=== PATIENT | female | born 2005 | race Caucasian/White ===

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

== ENCOUNTER 2023-10-10 12:30 | Emergency (ER) | payer OTHER, SELFPAY ==
--- NOTE | ~2023-10-10 | XR_ITS ---
EXAMINATION: RADIOGRAPH RIGHT ANKLE AND RIGHT FOOT CLINICAL INFORMATION: Injury. COMPARISON: None available. TECHNIQUE: 2 views of the right ankle and 3 views of the right foot. FINDINGS: No fracture. Alignment is anatomic. No erosions. Joint spaces are maintained. Soft tissues are normal. XR/XR foot RT min 3V IMPRESSION: No significant radiographic abnormality in the right ankle nor right foot. Electronically signed by: Marci Chong MD 10/10/2023 01:23 PM EDT
--- NOTE | ~2023-10-10 | XR_ITS ---
EXAMINATION: RADIOGRAPH RIGHT ANKLE AND RIGHT FOOT CLINICAL INFORMATION: Injury. COMPARISON: None available. TECHNIQUE: 2 views of the right ankle and 3 views of the right foot. FINDINGS: No fracture. Alignment is anatomic. No erosions. Joint spaces are maintained. Soft tissues are normal. XR/XR ankle RT min 3V IMPRESSION: No significant radiographic abnormality in the right ankle nor right foot. Electronically signed by: Marci Chong MD 10/10/2023 01:23 PM EDT
[2023-10-10 12:39] VITALS: BP 108/69; PULSE 81; RESP 18; TEMP 36.8; O2SAT 99; BMI 21.9
--- NOTE | 2023-10-10 12:42 | ED.LOWEXIN ---
HPI - Extremity Injury (Lower) General Chief Complaint: Extremity Injury, Lower Stated Complaint: R ankle injury Time Seen by Provider: 10/10/23 13:20 Source: patient Mode of arrival: other (crutches) Limitations: no limitations History of Present Illness ED Provider: Priscilla Castrejon PA-C HPI Narrative: 18-year-old female presents to the ER for evaluation of right ankle pain, redness and swelling that started last night after she injured it while hiking. She states she was climbing up a deep rock wall when a large rock fell down the wall, hitting her in the right lateral ankle. She reports significant pain with ambulation. She iced it last night. Today she had to use crutches because of the pain. She noticed redness to the lateral ankle. She sustained some abrasions from pickers, her TDAP is UTD. No other injuries. No pain in the foot. complaint: ankle injury Onset (ago): day(s) (1) Injury: Right: ankle Type of Injury: blunt Place: street/outdoors Severity: severe Relieving factors: immobilization and rest Exacerbating factors: weight bearing, movement and palpation Context: walking Associated symptoms: swelling and able to partially bear weight Other symptoms: none Treatments prior to arrival: cold therapy Related Data Previous Rx's ?Medication ?Instructions ?Recorded amoxicillin 875 mg-potassium 1 tab PO BID #20 tabs 06/05/22 clavulanate 125 mg tablet ibuprofen 600 mg tablet 600 mg PO Q6H PRN fever or pain 06/05/22 #30 tabs amoxicillin 500 mg-potassium 1 tab PO BID #14 tabs 10/10/23 clavulanate 125 mg tablet (Augmentin) ibuprofen 600 mg tablet 600 mg PO Q8H PRN pain #20 tabs 10/10/23 Allergies Allergy/AdvReac Type Severity Reaction Status Date / Time No Known Allergies Allergy Verified 10/10/23 12:42 Review of Systems Review of Systems: Yes all other systems are reviewed and are negative [facility] Social History Social History Alcohol intake: never Substance Use Type: Marijuana Physical Exam Vital Signs: Vital Signs: Last Vital Signs Temp 98.2 F 10/10/23 12:39 Pulse 81 10/10/23 12:39 Resp 18 10/10/23 12:39 BP 108/69 10/10/23 12:39 Pulse Ox 99 10/10/23 12:39 O2 Del Method Room Air 10/10/23 12:39 BMI result Body Mass Index 21.9 Appearance: Alert. Oriented X3. No acute distress. HEENT: normal inspection CVS: Normal heart rate and rhythm. Pulses normal. Respiratory: No respiratory distress. Skin: Skin warm and dry. Normal skin color. Normal skin turgor. No rashes. Extremities: Right ankle and lower leg with multiple superficial abrasions and scratches, no active bleeding. There is erythema overlying the right lateral malleolus, no warmth. There is significant tenderness and mild swelling of the right lateral malleolus as well. Tenderness extends distally to the proximal foot. Pain with plantar flexion and dorsiflexion. Neuro: Oriented X 3. No motor deficit. No sensory deficit. Course Course Course Narrative: This is a Rapid Medical Examination (RME) performed by Tita Butler PA-C in triage. Full HPI, ROS, assessment and treatment plan per primary provider in the Main ED. 18 yo female here for eval of right ankle pain/ swelling that occured while hiking last night when a rock fell and hit her right ankle. unable to bear weight on right foot. tetanus UTD. took motrin at 0930 this morning. PE: patient ambulating w/ crutches. noted swelling/ erythema to right lateral ankle. ttp. multiple scratches to right ankle/ vo. 2+PT/DP pulses. Plan: xrs ordered Medical Decision Making Medical Decision Making MDM Narrative: 18-year-old female presents to the ER for evaluation of right ankle pain, redness, swelling after a large rock fell down a wall and hit her in the right ankle while she was climbing it. Pain increased today were she is using crutches and is nonambulatory. On examination she has erythema to the right lateral ankle with some mild swelling. No deformity. She has significant tenderness and pain with range of motion. X-ray was done and reviewed. No evidence of acute fracture. Given the overlying erythema and localized scratches, will prescribe empiric antibiotics for possible early cellulitis. Patient was given return precautions, Milind wrap and Aircast for ankle injury. She is to continue crutches, rest, ice, elevation and NSAIDs for pain. Stable for discharge home. Differential Diagnosis Differential Diagnoses: The differential diagnosis associated with the presentation includes Ankle sprain, ankle fracture, cellulitis Independent Interpretation I performed an independent interpretation of an: Plain X-Ray Interpretation: No appreciated fracture or malalignment of the foot or ankle, agrees radiology read Radiology Impression Discussion of test interpretation with radiology: I have reviewed the radiologist's reading. Radiologist Impression: EXAMINATION: RADIOGRAPH RIGHT ANKLE AND RIGHT FOOT CLINICAL INFORMATION: Injury. COMPARISON: None available. TECHNIQUE: 2 views of the right ankle and 3 views of the right foot. FINDINGS: No fracture. Alignment is anatomic. No erosions. Joint spaces are maintained. Soft tissues are normal. XR/XR foot RT min 3V IMPRESSION: No significant radiographic abnormality in the right ankle nor right foot. Prescription Management I considered prescription management with: Pain Medication and Antibiotic Discharge Plan Discharge Clinical Impression: Ankle sprain and strain Patient Disposition: Home, Self-Care Instructions: Ankle Sprain (DC) Additional Instructions: Your x-ray today was normal. Rest your ankle and elevate your foot when possible. Recommend MILIND wrap for support and compression. Use ice several times per day for the next 48 hours. You may bear weight as tolerated. If pain is too severe, use crutches until better. Take the prescribed antibiotic for cellulitis. If the redness spreads or worsens after 48 hours on antibiotics, all your doctor or come back to the ER for further evaluation. Take the prescribed ibuprofen every [id number] hours. Take this with food. Also recommend adding Tylenol 1000 mg every 6-8 hours as needed for pain. Follow up with your doctor as needed. Prescriptions: New amoxicillin-pot clavulanate [Augmentin] 500-125 mg tablet 1 tab PO BID Qty: 14 0RF ibuprofen 600 mg tablet 600 mg PO Q8H PRN (Reason: pain) Qty: 20 0RF No Action ibuprofen 600 mg tablet 600 mg PO Q6H PRN (Reason: fever or pain) Qty: 30 0RF amoxicillin-pot clavulanate 875-125 mg tablet 1 tab PO BID Qty: 20 0RF Referrals: Enma Valle, PROTECTION AGENT [Primary Care Provider] - Print Language: Belarusian
[2023-10-10 13:58] VITALS: BP 108/69; PULSE 81; RESP 18; TEMP 36.8; O2SAT 99
== END 2023-10-10 13:58 | disposition home or self-care (01) ==
PROVIDERS: Emergency Provider Emergency Medicine; PCP Nurse Practitioner Family
DX: S93.401A Sprain of unspecified ligament of right ankle, initial encounter (principal); S96.911A Strain of unspecified muscle and tendon at ankle and foot level, right foot, initial encounter; W20.8XXA Other cause of strike by thrown, projected or falling object, initial encounter; Y93.01 Activity, walking, marching and hiking; Y92.828 Other wilderness area as the place of occurrence of the external cause; Y99.9 Unspecified external cause status
CPT/HCPCS: 73610; 73630; 99283

== ENCOUNTER 2024-10-28 13:52 | Emergency (ER) | payer OTHER, SELFPAY ==
--- NOTE | ~2024-10-28 | CT_ITS ---
CLINICAL HISTORY: fall with head strke CT cervical spine without contrast. COMPARISON: None provided. FINDINGS: Straightening of the normal cervical lordosis, likely positional. Vertebral body heights are maintained. 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 No significant degenerative changes. Skull base and intracranial structures appear normal. The visualized paravertebral soft tissues appear unremarkable. IMPRESSION: 1. No evidence of acute injury to the cervical spine. This document has been electronically signed by: Paul Romero MD on 10/28/2024 17:29:20
--- NOTE | ~2024-10-28 | CT_ITS ---
EXAMINATION: CT HEAD WITHOUT CONTRAST CLINICAL INFORMATION: Fall with head trauma COMPARISON: None available. TECHNIQUE: Contiguous axial imaging was performed from the skull base to vertex without intravenous administration of contrast. This CT examination was performed using dose optimization techniques as appropriate, variously including the following: *Automated exposure control *Adjustment of mA and/or kV according to patient size (this includes techniques or standardized protocols for targeted exams where dose is matched to indication/reason for exam; i.e. extremities or head) *Use of iterative reconstruction technique DLP: 587 mGY*cm FINDINGS: There is no acute ischemic change. There is no intracranial hemorrhage. There is no mass-effect or midline shift. Basal cisterns and ventricles are within normal limits for age/cerebral volume. Orbits are symmetrical and unremarkable. Paranasal sinuses and mastoid air cells are pneumatized. There are no bony abnormalities. CT/CT head/brain wo IV con IMPRESSION: No acute intracranial abnormality. Electronically signed by: Jimbo Knight MD 10/28/2024 05:26 PM EDT
[2024-10-28 13:56] VITALS: BP 114/70; PULSE 88; RESP 18; TEMP 36.9; O2SAT 95; BMI 23.8
--- NOTE | 2024-10-28 13:57 | ECG_ITS ---
Test Reason : DIZINESS Blood Pressure : */* mmHG Vent. Rate : 77 BPM Atrial Rate : 77 BPM P-R Int : 156 ms QRS Dur : 78 ms QT Int : 366 ms P-R-T Axes : 49 30 5 degrees QTcB Int : 414 ms Normal sinus rhythm Septal infarct , age undetermined Abnormal ECG No previous ECGs available Referred By: Lidia Butler Electronically Signed By: ANNA MARIE MITCHELL MD
--- NOTE | 2024-10-28 13:57 | ED.GENADULT ---
[facility] - General Adult General Chief complaint: Head Injury Stated complaint: Head inj, ref by [facility] Time Seen by Provider: 10/28/24 16:57 Source: patient Mode of arrival: ambulatory History of Present Illness ED Provider: Caroline [facility] narrative: 19-year-old female who reports that she was in the bathroom this morning, when she felt lightheaded and fell backwards striking the back of her head on the counter, she denies LOC but was concerned about possible concussion and went to urgent care who referred her into the emergency room. She states that she has some pain to the back of her head but otherwise denies any dizziness, she reports that she did vomit a couple of times today but otherwise has been feeling well. Related Data Previous Rx's ?Medication ?Instructions ?Recorded amoxicillin 875 mg-potassium 1 tab PO BID #20 tabs 06/05/22 clavulanate 125 mg tablet ibuprofen 600 mg tablet 600 mg PO Q6H PRN fever or pain 06/05/22 #30 tabs amoxicillin 500 mg-potassium 1 tab PO BID #14 tabs 10/10/23 clavulanate 125 mg tablet (Augmentin) ibuprofen 600 mg tablet 600 mg PO Q8H PRN pain #20 tabs 10/10/23 Allergies Allergy/AdvReac Type Severity Reaction Status Date / Time No Known Allergies Allergy Verified 10/28/24 13:58 Review of Systems Review of Systems: Pertinent positives and negatives as stated in [facility] Past Medical History Attestation statement: The following information was validated with the patient. Source: nursing notes reviewed Social History Social History Alcohol intake: never Substance Use Type: Marijuana Advance Directives: No Advance Directives Information Provided: Yes Do you have a plan to hurt others: No Plan Physical Exam ED Exam Exam: VITAL SIGNS: Reviewed. GENERAL: Well developed, well nourished, in no acute distress. HEAD: Normocephalic/atraumatic EYES: PERRLA, EOMI EARS: Ext canals without abnormality NOSE: Nares patent bilateral OROPHARYNX: no oral lesions noted, posterior pharynx clear NECK: Supple, no adenopathy, no midline cervical spine tenderness to palpation or step-offs noted. LUNGS: Normal breath sounds. No adventitious sounds or accessory muscle use. CARDIOVASCULAR: Regular rate and rhythm without noted murmurs ABDOMEN: Soft, non-tender, non-distended with bowel sounds. MUSCULOSKELETAL: No tenderness, deformities, or effusions noted on gross inspection. EXTREMITIES: No cyanosis, clubbing or edema. SKIN: Inspection of the skin reveals no rashes NEUROLOGIC: Alert and oriented x 4. Strength and sensation to light touch were grossly intact x 4. Vital Signs: Vital Signs - 24 hr 10/28/24 13:56 10/28/24 17:02 Temperature 98.4 F 98.3 F Pulse Rate 88 76 Respiratory Rate 18 18 Blood Pressure 114/70 122/60 Pulse Oximetry 95 100 Oxygen Delivery Method Room Air Room Air BMI result Body Mass Index 23.8 Course Course Course Narrative: This is a Rapid Medical Examination (RME) performed by Tita Butler PA-C in triage. Full HPI, ROS, assessment and treatment plan per primary provider in the Main ED. Hx: 19 yo F here from for eval s/p head injury this morning. reports feeling dizzy w/ tunnel vision while in her bathroom causing her to fall to the ground w/ head strike on the edge of her kitchen sink. denies complete LOC. +1 episode of vomiting. reports headache at present. seen at , sent here for imaging. states this happens often. Plan: labs, ekg, imaging Medical Decision Making Medical Decision Making MDM Narrative: 19-year-old female with history and clinical presentation, DD DX: Vasovagal near-syncope with head strike. Will evaluate for underlying infection/anemia/electrolyte derangements. 1752: My interpretation of the EKG-sinus rhythm, HR-77, no STEMI, MD/QRS/QTC/QTC is otherwise within normal limits. 1753: Reviewed and interpreted all investigations and there is no leukocytosis, anemia, or thrombocytopenia. There is no demonstrate MUSA/electrolyte or liver enzyme derangements. High sensitivity troponin is undetectable and not associated with ischemic changes. Beta hCG is undetectable. My interpretation is in agreement with radiology's impression of the noncontrast head CT and cervical spine in that there is no evidence of intracranial hemorrhage or mass effect and no evidence of C-spine fracture or subluxation. Patient is otherwise well-appearing and nontoxic, she is hemodynamically stable without focal neurologic deficits. She will be discharged with instructions to follow-up with your primary care doctor and given precautions regarding screen time/sound and noise for the next 24-48 hours. Patient does not meet inpatient level of care at this time. Differential Diagnosis Differential Diagnoses: The differential diagnosis associated with the presentation includes See above Admission/Observation Consideration of admission/observation: Escalation of care including admission/observation considered See above Lab Data MDM Lab Attestation statement: I reviewed the patient's lab results. See above 10/28/24 14:16 10/28/24 14:16 Labs: Lab Results 10/28/24 Range/Units 14:16 WBC 6.2 (4.8-10.8) X10*3/uL RBC 4.31 (4.20-5.50) X10*6/uL Hgb 13.5 (12.0-16.0) g/dl Hct 36.3 L (37.0-47.0) % MCV 84.2 (80.0-98.0) fL MCH 31.3 (27.0-33.0) pg MCHC 37.2 H (31.0-35.0) g/dl RDW 12.1 (11.0-16.0) % Plt Count 187 (160-400) X10*3/uL MPV 10.0 (9.4-12.3) fL Immature Gran % (Auto) 0.2 (0.0-0.4) % Neut % (Auto) 71.7 (45-73) % Lymph % (Auto) 21.5 (20-40) % [place] % (Auto) 5.8 (2-11) % Eos % (Auto) 0.5 (0-4) % Baso % (Auto) 0.3 (0-2) % Lymph # (Auto) 1.3 (1.2-4.9) X10*3/uL [place] # (Auto) 0.4 (0.1-1.2) X10*3/uL Eos # (Auto) 0.0 (0.0-0.4) X10*3/uL Baso # (Auto) 0.0 (0.0-0.2) X10*3/uL Abs Immat Gran (auto) 0.01 (0.00-0.03) X10*3/uL Absolute Neuts (auto) 4.5 (2.0-8.3) x10*3/uL Absolute Nucleated RBC 0.000 (0.0-0.012) X10*3/uL Nucleated RBC % (auto) 0.0 (0.0-0.2) /100WBC Sodium 141 (135-145) mmol/L Potassium 3.8 (3.3-5.1) mmol/L Chloride 109 H (96-108) mmol/L Carbon Dioxide 24 (22-29) mmol/L Anion Gap 12 (12-20) BUN 13 (9-16) mg/dL Creatinine 0.81 (0.5-1.4) mg/dL Estim Creat Clear Calc 86.9 Estimated GFR > 60 Random Glucose 87 (60-115) mg/dL Calcium 9.2 (8.4-10.2) mg/dL Magnesium 2.0 (1.6-2.6) mg/dL Total Bilirubin 0.4 (0.0-1.0) mg/dL AST 19 (5-31) U/L ALT 20 (0-31) U/L Alkaline Phosphatase 33 L (39-117) U/L Troponin I High Sens < 2.7 (<3.5-17.0) ng/L Total Protein 6.8 (6.5-8.0) g/dL Albumin 4.2 (3.5-5.0) g/dL Beta HCG, Quant < 2 mIU/mL Independent Interpretation I performed an independent interpretation of an: EKG and CT Scan Interpretation: See above Radiology Impression Discussion of test interpretation with radiology: I have reviewed the radiologist's reading. Radiologist Impression: See above Discharge Plan Discharge Clinical Impression: Closed head injury, Near syncope Patient Disposition: Home, Self-Care Instructions: Post Concussion Syndrome (ED) Additional Instructions: Highly recommend Tylenol and ibuprofen for any headaches, avoid fallen/TV as well as stick to low light and sound environments. Follow-up with your primary care doctor and do not hesitate to return to the emergency room for any acute worsening of your symptoms. Prescriptions: No Action ibuprofen 600 mg tablet 600 mg PO Q6H PRN (Reason: fever or pain) Qty: 30 0RF amoxicillin-pot clavulanate 875-125 mg tablet 1 tab PO BID Qty: 20 0RF amoxicillin-pot clavulanate [Augmentin] 500-125 mg tablet 1 tab PO BID Qty: 14 0RF ibuprofen 600 mg tablet 600 mg PO Q8H PRN (Reason: pain) Qty: 20 0RF Stand Alone Forms: Work/School Release Print Language: Telugu
[2024-10-28 14:21] LABS: MANUAL DIFF FLAG NO
[2024-10-28 14:25] LABS: Hematocrit 36.3 % (37.0-47.0); Hemoglobin 13.5 g/dl (12.0-16.0); Imm Gran Abs Auto 0.01 X10*3/uL (0.00-0.03); Imm Gran Pct Auto 0.2 % (0.0-0.4); Lymphocytes Absolute Auto 1.3 X10*3/uL (1.2-4.9); Mean Corpuscular HGB Conc 37.2 g/dl (31.0-35.0); Mean Corpuscular Hemoglobin 31.3 pg (27.0-33.0); Mean Corpuscular Volume 84.2 fL (80.0-98.0); NRBC Abs Auto 0.000 X10*3/uL (0.0-0.012); NRBC Pct Auto 0.0 /100WBC (0.0-0.2); Platelet Count 187 X10*3/uL (160-400); Red Blood Count 4.31 X10*6/uL (4.20-5.50); White Blood Count 6.2 X10*3/uL (4.8-10.8)
[2024-10-28 14:43] LABS: Alanine Aminotransferase 20 U/L (0-31); Albumin Level 4.2 g/dL (3.5-5.0); Alkaline Phosphatase 33 U/L (39-117); Anion Gap 12 (12-20); Aspartate Amino Transferase 19 U/L (5-31); Blood Urea Nitrogen 13 mg/dL (9-16); Calcium 9.2 mg/dL (8.4-10.2); Carbon Dioxide 24 mmol/L (22-29); Chloride 109 mmol/L (96-108); Creatinine Clr Calc Pharmacy 86.9; Estimated Glomerular Filt Rate > 60; Magnesium 2.0 mg/dL (1.6-2.6); Potassium 3.8 mmol/L (3.3-5.1); Sodium 141 mmol/L (135-145); Total Protein 6.8 g/dL (6.5-8.0)
[2024-10-28 14:51] LABS: Troponin-I High Sensitivity < 2.7 ng/L (<3.5-17.0)
[2024-10-28 17:02] VITALS: BP 122/60; PULSE 76; RESP 18; TEMP 36.8; O2SAT 100
--- OUTSIDE RECORDS SUMMARY | 2024-10-28 17:38 | XMS_ITS | Clinical Summary ---
Author Organization [facility] Address [address] [place] [address] [place] [id number] Phone Care Team Providers Care Workers Compensation Defense Attorney Name Role Phone Santos Stevens MD Primary Care Provider [phone]- [phone] Allergies No known active allergies Medications No known medications Active Problems Problem Noted Date Diagnosed Date Closed displaced fracture of middle phalanx of right middle finger 05/30/2017 Social History Tobacco Use Types Packs/Day Years Used Date Smoking Tobacco: Never Smokeless Tobacco: Never Alcohol Use Standard Drinks/Week Comments No 0 (1 standard drink = 0.6 oz pur e alcohol) Education Answer Date Recorded Are you interested in more education? Not on tera e 06/15/2022 Are you concerned about learning? Not on file 06/15/2022 No 06/15/2022 No 06/15/2022 Digital Access Answer Date Recorded No 07/16/2022 No 07/16/2022 No 07/16/2022 Reliable internet access at home? Not on file 07/16/2022 Device with a working camera? Not on file Comments Unknown Sex and Gender Information Value Date Recorded Sex Assigned at Not on file Legal Sex Female 4:46 PM EDT Gender Identity Not on file Sexual Orientation Not on file Last Filed Vital Signs Vital Sign Reading Time Taken Comments Blood Pressure 121/75 11/22/2017 12:45 PM EDT Pulse 65 11/22/2017 12:45 PM EDT Temperature 36.9 C (98.5 F) 11/22/2017 12:45 PM EDT Respiratory Rate 18 11/22/2017 12:45 PM EDT Oxygen Saturation 98% 11/22/2017 12:45 PM EDT Inhaled Oxygen Concentration - - Weight 53.3 kg (117 lb 8.1 oz) 11/22/2017 12:45 PM EDT Height 152.4 cm (5') 05/29/2017 3:11 PM EDT Body Mass Index - - Plan of Treatment Health Maintenance Due Date Last Done Comments DEPRESSION SCREENING 2015 SMOKING Hx and SMOKELESS TOBACCO SCREENING 07/05/2016 CHLAMYDIA SCREENING 2019 MENINGOCOCCAL VACCINES (B) (1 of 2 - Standard) 2019 ADOLESCENT UNIVERSAL LIPID SCREENING 07/05/2020 HEPATITIS C SCREENING 07/05/2021 HIV ONE-TIME SCREENING (18-65 YEARS) 07/05/2021 PAP SMEAR 07/05/2024 INFLUENZA VACCINE (#1) 2024 , 05/04/2019, 10/23/2016, Additional history exists COVID-19 VACCINE ( - season) 2024 Adult Td,Tdap Booster 11/23/2024 11/23/2014 COMBINED DTaP,Tdap,Td (7 - Td or Tdap) 11/23/2024 11/23/2014, 09/27/2008, 06/19/2005, Additional history exists PNEUMOCOCCAL VACCINES (0-49 years) Aged Out 11/01/2004, 01/21/2004, 2003, Additional history exists No longer eligible based on patient's age to complete this topic HIB VACCINES Completed 06/19/2005, 04/2003, 2003, Additional history exists MMR VACCINES Completed 09/27/2008, 07/07/2004 HPV VACCINES Completed 06/15/2015, 01/18, 11/23/2014 HEPATITIS A VACCINES Completed 06/04/2017, 12/05/19 17 MENINGOCOCCAL VACCINES (ACWY) Completed 01/01/2020, 11/23/2014 Medical Devices Not on file Insurance [place] [address] [place] [address] [place], [place] [address] O [facility] Care Teams Workers Compensation Defense Attorney Relationship Specialty Start Date End Date Santos Stevens MD [facility] [address] PCP - General Pediatrics 05/29/17 Additional Source Comments The information contained in this document represents components of the legal health record. It is not the complete legal health record.[facility]
[2024-10-28 18:25] VITALS: BP 122/60; PULSE 76; RESP 18; TEMP 36.8; O2SAT 100
== END 2024-10-28 18:25 | disposition home or self-care (01) ==
PROVIDERS: Physician Assistant Medical; Emergency Provider Student in an Organized Health Care Education/Training Program; PCP Nurse Practitioner Family
DX: S09.90XA Unspecified injury of head, initial encounter (principal); W19.XXXA Unspecified fall, initial encounter; Y93.9 Activity, unspecified; Y92.9 Unspecified place or not applicable; Y99.9 Unspecified external cause status; R55 Syncope and collapse; R42 Dizziness and giddiness
CPT/HCPCS: 36415; 70450; 72125; 80053; 83735; 84484; 84702; 85025; 93005; 99284

== ENCOUNTER → 2024-10-28 13:57 | Outpatient (BNV) | payer OTHER, SELFPAY | PROVIDERS: Emergency Provider Student in an Organized Health Care Education/Training Program; PCP Nurse Practitioner Family; Visit Provider Radiology Diagnostic Radiology | DX: S09.90XA Unspecified injury of head, initial encounter (principal); W19.XXXA Unspecified fall, initial encounter | CPT/HCPCS: 70450 ==

== ENCOUNTER → 2024-10-28 13:57 | Outpatient (BNV) | payer OTHER, SELFPAY | PROVIDERS: Emergency Provider Student in an Organized Health Care Education/Training Program; PCP Nurse Practitioner Family; Visit Provider Internal Medicine Cardiovascular Disease | DX: R94.31 Abnormal electrocardiogram [ECG] [EKG] (principal); R42 Dizziness and giddiness | CPT/HCPCS: 93010 ==

== ENCOUNTER 2025-01-15 20:00 | Emergency (ER) | payer OTHER, SELFPAY ==
[2025-01-15 20:11] VITALS: BP 116/56; PULSE 101; RESP 18; TEMP 38.3; O2SAT 100; BMI 22.7
--- OUTSIDE RECORDS SUMMARY | 2025-01-15 20:35 | XMS_ITS | Clinical Summary ---
Author Organization [facility] Address [address] [place] [address] [place] [phone] Phone Care Team Providers Care Electrician Bus Name Role Phone Santos Stevens MD Primary Care Provider +1- [phone] Allergies No known active allergies Medications No [...] Medical Devices Not on file Insurance [place] [address] [place] [address] [place], [place] [address] O HMO O O O O [facility] HMO Care Teams Electrician Bus Relationship Specialty Start Date End Date Santos Stevens MD [facility] [place] [address] PCP - General Pediatrics 05/29/17 Additional Source Comments The information contained in this document represents components of the legal health record. It is not the complete legal health record.[facility]
[2025-01-15 20:36] VITALS: BP 115/62; PULSE 98; RESP 16; TEMP 37.7; O2SAT 99
[2025-01-15 20:41] LABS: Hematocrit 40.1 % (37.0-47.0); Hemoglobin 13.9 g/dl (12.0-16.0); Imm Gran Abs Auto 0.02 X10*3/uL (0.00-0.03); Imm Gran Pct Auto 0.3 % (0.0-0.4); Lymphocytes Absolute Auto 2.7 X10*3/uL (1.2-4.9); MANUAL DIFF FLAG SCAN; Mean Corpuscular HGB Conc 34.7 g/dl (31.0-35.0); Mean Corpuscular Hemoglobin 30.6 pg (27.0-33.0); Mean Corpuscular Volume 88.3 fL (80.0-98.0); NRBC Abs Auto 0.000 X10*3/uL (0.0-0.012); NRBC Pct Auto 0.0 /100WBC (0.0-0.2); Platelet Count 150 X10*3/uL (160-400); Red Blood Count 4.54 X10*6/uL (4.20-5.50); SCAN SMEAR FLAG 1; White Blood Count 7.8 X10*3/uL (4.8-10.8)
--- NOTE | 2025-01-15 20:42 | ED.GENADULT ---
HPI - General Adult General Chief complaint: Abdominal Pain Stated complaint: Abnormal Labs Time Seen by Provider: 01/15/25 20:28 Source: patient Mode of arrival: ambulatory Limitations: no limitations History of Present Illness ED Provider: Fely HAYWOOD narrative: Patient is a 19 year old female presenting today coming from an urgent care reporting LUQ pain that started this morning. Pt was diagnosed with mono 3 days ago. Endorses bilateral neck pain, headache, fatigue, fever, LUQ pain radiating into LLQ. Denies n/v/d. The patient denies any traumas to the abdomen or falls Related Data Previous Rx's ?Medication ?Instructions ?Recorded amoxicillin 875 mg-potassium 1 tab PO BID #20 tabs 06/05/22 clavulanate 125 mg tablet ibuprofen 600 mg tablet 600 mg PO Q6H PRN fever or pain 06/05/22 #30 tabs amoxicillin 500 mg-potassium 1 tab PO BID #14 tabs 10/10/23 clavulanate 125 mg tablet (Augmentin) ibuprofen 600 mg tablet 600 mg PO Q8H PRN pain #20 tabs 10/10/23 Allergies Allergy/AdvReac Type Severity Reaction Status Date / Time No Known Allergies Allergy Verified 01/15/25 20:14 Review of Systems Constitutional: Constitutional: Reports as per HPI and Denies chills ENT: Reports odynophagia Cardiovascular: Cardiovascular: Denies chest pain and Denies dyspnea Respiratory: Respiratory: Denies cough and Denies dyspnea Gastrointestinal: Gastrointestinal: Reports abdominal pain (LUQ), Denies constipation, Denies diarrhea, Reports odynophagia and Denies vomiting Genitourinary: Genitourinary: Denies dysuria Neurologic: Denies focal weakness COUNT INCLUDES THE [facility] Social History Social History Alcohol intake: never Smoked in Last 30 Days: Yes Use of substances other than those prescribed or required for medical reasons: No Substance Use Type: Marijuana Advance Directives: No Advance Directives Information Provided: No Patient : No Physical Exam ED Vital Signs: Vital Signs - 24 hr 01/15/25 20:11 01/15/25 20:36 01/15/25 21:40 Temperature 101.0 F H 99.9 F 98.9 F Pulse Rate 101 H 98 95 Respiratory Rate 18 16 14 Blood Pressure 116/56 L 115/62 121/58 L Pulse Oximetry 100 99 96 Oxygen Delivery Method Room Air Room Air Room Air 01/15/25 21:44 Temperature 98.9 F Pulse Rate 95 Respiratory Rate 14 Blood Pressure 121/58 L Pulse Oximetry 96 Oxygen Delivery Method Room Air BMI result Body Mass Index 22.7 Const General: healthy appearing, comfortable, no acute distress, alert and awake Nutritional Appearance: well nourished Orientation/consciousness: patient oriented x3 HENMT Head: Yes normocephalic and Yes atraumatic Throat: Yes abnormal tonsil (enlarged) and Yes posterior oropharynx abnormal (erythematous) Eyes Eyelids: Yes eyelids normal Conjunctivae: conjunctivae normal Sclerae: sclerae normal Corneas: corneas normal Neck Neck: Yes full ROM and Yes lymphadenopathy Resp Effort & Inspection: normal respiratory effort, able to speak in complete sentences, no audible wheezes and not labored GI Inspection: No distended Palpation (GI): Soft to palpation, not firm, Tenderness to palpation present (GI) (There was minimal tenderness to the left upper quadrant. No ecchymosis), no guarding and Splenomegaly present Auscultation: normoactive bowel sounds Skin General skin exam: no rashes or lesions noted and elasticity normal Neuro General: patient oriented x3 Cognition (Neuro): normal cognition Extrem Other: Moving all extremities well without any obvious deformities Medications Administered Discontinued Medications Generic Name Dose Route Start Last Admin Trade Name Freq PRN Reason Stop Dose Admin Dexamethasone 10 mg 01/15/25 21:24 01/15/25 21:41 Dexamethasone 2 Mg Tablet PO 01/15/25 21:25 10 mg ONCE ONE Administration Medical Decision Making Medical Decision Making [facility] Narrative: This is a healthy 19-year-old female presenting for evaluation of abdominal pain. She was diagnosed with mononucleosis 3 days ago. She does complain of a sore throat and has exudates on exam. Her airway is widely pain. The patient's spleen does appear enlarged as in his palpable on exam though there was no trauma, there was no ecchymosis or abdominal distention to suggest splenic injury or laceration. The patient was given a dose of dexamethasone for symptomatic treatment of her sore throat. She was educated on avoiding strenuous activity, contact sports but I do not see any any indication to obtain an emergent imaging of her abdomen at this time. Differential Diagnosis Differential Diagnoses: The differential diagnosis associated with the presentation includes Splenomegaly Mononucleosis Strep Covid/Flu Gastritis Lab Data MDM Lab Attestation statement: I reviewed the patient's lab results. No leukocytosis or anemia. Platelet count within normal limits, no significant electrolyte abnormalities warranting intervention 01/15/25 20:22 01/15/25 20:22 Labs: Lab Results 01/15/25 Range/Units 20:22 WBC 7.8 (4.8-10.8) X10*3/uL RBC 4.54 (4.20-5.50) X10*6/uL Hgb 13.9 (12.0-16.0) g/dl Hct 40.1 (37.0-47.0) % MCV 88.3 (80.0-98.0) fL MCH 30.6 (27.0-33.0) pg MCHC 34.7 (31.0-35.0) g/dl RDW 13.4 (11.0-16.0) % Plt Count 150 L (160-400) X10*3/uL MPV 9.6 (9.4-12.3) fL Immature Gran % (Auto) 0.3 (0.0-0.4) % Neut % (Auto) 57.6 (45-73) % Lymph % (Auto) 34.2 (20-40) % Dickson % (Auto) 6.4 (2-11) % Eos % (Auto) 1.0 (0-4) % Baso % (Auto) 0.5 (0-2) % Lymph # (Auto) 2.7 (1.2-4.9) X10*3/uL Dickson # (Auto) 0.5 (0.1-1.2) X10*3/uL Eos # (Auto) 0.1 (0.0-0.4) X10*3/uL Baso # (Auto) 0.0 (0.0-0.2) X10*3/uL Abs Immat Gran (auto) 0.02 (0.00-0.03) X10*3/uL Absolute Neuts (auto) 4.5 (2.0-8.3) x10*3/uL Absolute Nucleated RBC 0.000 (0.0-0.012) X10*3/uL Nucleated RBC % (auto) 0.0 (0.0-0.2) /100WBC Smear Tech's Comments VERIFIED Sodium 143 (135-145) mmol/L Potassium 3.6 (3.3-5.1) mmol/L Chloride 110 H (96-108) mmol/L Carbon Dioxide 23 (22-29) mmol/L Anion Gap 14 (12-20) BUN 9 (9-16) mg/dL Creatinine 0.73 (0.5-1.4) mg/dL Estim Creat Clear Calc 96.4 Estimated GFR > 60 Random Glucose 117 H (60-115) mg/dL Calcium 9.5 (8.4-10.2) mg/dL Total Bilirubin 0.7 (0.0-1.0) mg/dL AST 22 (5-31) U/L ALT 21 (0-31) U/L Alkaline Phosphatase 52 (39-117) U/L Total Protein 7.1 (6.5-8.0) g/dL Albumin 4.3 (3.5-5.0) g/dL Beta HCG, Quant < 2 mIU/mL Discharge Plan Discharge Clinical Impression: Mononucleosis Patient Disposition: Home, Self-Care Instructions: Mononucleosis (ED) Additional Instructions: You were given a dose of dexamethasone which is a steroid that has longer acting than prednisone. Use ibuprofen/Tylenol as needed for fevers and body aches. Your spleen seems to be enlarged and may be contributing to some of the or abdominal pain. You should return to the ER for CT imaging if you notice any significant bruising to the left flank or left upper abdomen. If there was any trauma to your abdomen or left side you should also be seen in the hospital Prescriptions: No Action ibuprofen 600 mg tablet 600 mg PO Q6H PRN (Reason: fever or pain) Qty: 30 0RF amoxicillin-pot clavulanate 875-125 mg tablet 1 tab PO BID Qty: 20 0RF amoxicillin-pot clavulanate [Augmentin] 500-125 mg tablet 1 tab PO BID Qty: 14 0RF ibuprofen 600 mg tablet 600 mg PO Q8H PRN (Reason: pain) Qty: 20 0RF Interventions: ED Discharge Assessment Last Done: 01/15/25 21:44 Discharge Date/Time: 01/15/25 22:01 Print Language: Lao
[2025-01-15 20:53] LABS: Alanine Aminotransferase 21 U/L (0-31); Albumin Level 4.3 g/dL (3.5-5.0); Alkaline Phosphatase 52 U/L (39-117); Anion Gap 14 (12-20); Aspartate Amino Transferase 22 U/L (5-31); Blood Urea Nitrogen 9 mg/dL (9-16); Calcium 9.5 mg/dL (8.4-10.2); Carbon Dioxide 23 mmol/L (22-29); Chloride 110 mmol/L (96-108); Creatinine Clr Calc Pharmacy 96.4; Estimated Glomerular Filt Rate > 60; Potassium 3.6 mmol/L (3.3-5.1); Sodium 143 mmol/L (135-145); Total Protein 7.1 g/dL (6.5-8.0)
[2025-01-15 21:40] VITALS: BP 121/58; PULSE 95; RESP 14; TEMP 37.2; O2SAT 96
[2025-01-15 21:44] VITALS: BP 121/58; PULSE 95; RESP 14; TEMP 37.2; O2SAT 96
== END 2025-01-15 22:01 | disposition home or self-care (01) ==
PROVIDERS: Emergency Provider Student in an Organized Health Care Education/Training Program; PCP Registered Nurse Medical-Surgical
DX: B27.90 Infectious mononucleosis, unspecified without complication (principal); R10.12 Left upper quadrant pain; M54.2 Cervicalgia; R51.9 Headache, unspecified; R53.83 Other fatigue
CPT/HCPCS: 36415; 80053; 84702; 85025; 99283; 99284; J8540